=== PATIENT | female | born 1960 | race Caucasian/White ===

== ENCOUNTER 2019-11-10 07:17 | Emergency (ER) | payer OTHER ==
[~2019-11-10] VITALS: Ht 152.4 cm; Wt 68.6 kg
[2019-11-10 07:57] VITALS: BP 136/79
[2019-11-10 08:37] LABS: INFLUENZA A PATIENT NEGATIVE (NEGATIVE); INFLUENZA B PATIENT NEGATIVE (NEGATIVE)
--- NOTE | 2019-11-10 09:47 | PHYS DOC ---
Past History Past Medical History: Diabetes, Other Past Surgical History: Cholecystectomy, Hysterectomy, Tonsillectomy, Other Alcohol Use: None Adult General Chief Complaint Chief Complaint: COUGH HPI HPI Patient is a worker at [employer] who presents with nasal congestion rhinorrhea, cough, subjective fever, chills and chest wall pain. Symptom onset was 2 days ago at work after being in contact with coworkers who tested positive for da silva virus. Patient denies increased shortness of breath,, chest pain, nausea vomiting, dizziness. No headache, neck stiffness rash. No other acute symptoms or complaints. Patient is a current smoker. [] Review of Systems Review of Systems Review of symptoms as per HPI. All other review of symptoms are negative. All other systems were reviewed and found to be within normal limits, except as documented in this note. Allergies Allergies Allergies Coded Allergies Type Severity Reaction Last Updated Verified No Known Drug Allergies 11/10/19 No Physical Exam Physical Exam Constitutional: Well developed, well nourished, no acute distress, non-toxic appearance. [] HENT: Normocephalic, atraumatic, bilateral external ears normal, oropharynx mo ist, no oral exudates, nose normal. [] Eyes: PERRLA, EOMI, conjunctiva normal, no discharge. [] Neck: Normal range of motion, no tenderness, supple, no stridor. [] Cardiovascular:Heart rate regular rhythm, no murmur [] Lungs & Thorax: Bilateral breath sounds clear to auscultation [] Abdomen: Bowel sounds normal, soft, no tenderness. [] Skin: Warm, dry, no rash. [] Back: No tenderness. [] Extremities: No tenderness,, no edema. [] Neurologic: Alert and oriented X 3, normal motor function, normal sensory function, no focal deficits noted. [] Psychologic: Affect normal, judgement normal, mood normal. [] Current Patient Data Vital Signs Vital Signs Date Time Temp Pulse Resp B/P (MAP) Pulse Ox O2 Delivery O2 Flow Rate FiO2 11/10/19 07:57 85 16 136/79 (98) 100 Room Air 11/10/19 07:19 98.1 Lab Results Laboratory Tests Test 11/10/19 07:57 Influenza Type A (Rapid) Negative (NEGATIVE) Influenza Type B (Rapid) Negative (NEGATIVE) EKG EKG [] Radiology/Procedures Radiology/Procedures [] Course & Med Decision Making Course & Med Decision Making Pertinent Labs and Imaging studies reviewed. (See chart for details) [Patient with viral syndrome consistent with novel coronavirus. Patient is not hypoxic and is not in respiratory compromise. Imaging and octet sting not indicated in the emergency department. Recommend self quarantine at home and outpatient testing. Return precautions reviewed. Patient verbalizes understanding agreement discharge instructions prior to departure. Dragon Disclaimer Dragon Disclaimer This electronic medical record was generated, in whole or in part, using a voice recognition dictation system. Departure Departure: Impression: Primary Impression: Viral syndrome Disposition: HOME, SELF-CARE Condition: STABLE Patient Instructions: Viral Syndrome Additional Instructions: Please contact [facility] at to arrange for outpatient coronavirus testing. In the meantime, self-quarentine for the next 14 days or until your recieve a negative coronavrius test result and your symptoms have fully resolved. Return to the ED if new or worsening symptoms. JACOB CANTU DO Nov 10, 2019 09:47
== END 2019-11-10 08:05 | disposition home or self-care (01) ==
LOC: ER 07:17
DX: B34.9 Viral infection, unspecified (principal); E11.9 Type 2 diabetes mellitus without complications
CPT/HCPCS: 87804; 99283